=== PATIENT | male | born 1990 | race Caucasian/White ===

== ENCOUNTER 2018-02-28 00:35 | Emergency (ER) | payer SELFPAY ==
[~2018-02-28] VITALS: Ht 185.4 cm; Wt 118.0 kg
[2018-02-28 01:03] VITALS: BP 128/88
== END 2018-02-28 03:04 | disposition home or self-care (01) ==
LOC: EMS 00:36
DX: S31.139A Puncture wound of abdominal wall without foreign body, unspecified quadrant without penetration into peritoneal cavity, initial encounter (principal); S60.812A Abrasion of left wrist, initial encounter; F15.10 Other stimulant abuse, uncomplicated; Z02.89 Encounter for other administrative examinations; Y35.893A Legal intervention involving other specified means, suspect injured, initial encounter; Y93.89 Activity, other specified; Y92.89 Other specified places as the place of occurrence of the external cause; Y99.8 Other external cause status
CPT/HCPCS: 93005; 99291